=== PATIENT | female | born 1975 | race Caucasian/White ===

== ENCOUNTER 2018-07-30 22:13 | Inpatient (IN) | payer MEDICAID ==
[2018-07-30] MEDS: LACTATED RINGER'S 1,000 ML IV (23:35)
[2018-07-30] MEDS: ACETAMINOPHEN 1000MG/100ML IV 100 ML IVPB (23:48)
[2018-07-30 23:51] LABS: ADD MAN DIFF? NO
[2018-07-30 23:57] LABS: BASOPHILS % 0.2 % (0.0-2.0); EOSINOPHILS # 0.1 10^3/ul (0.0-0.5); EOSINOPHILS % 0.7 % (0.0-7.0); HEMATOCRIT 33.2 % (37.0-47.0); HEMOGLOBIN 11.4 g/dl (12.0-16.0); LYMPHOCYTES # 1.8 10^3/ul (0.8-2.9); LYMPHOCYTES % 14.7 % (15.0-51.0); MEAN CORPUSCULAR HEMOGLOBIN 30.5 pg (29.0-33.0); MEAN CORPUSCULAR HGB CONC 34.3 g/dl (32.0-37.0); MEAN CORPUSCULAR VOLUME 88.8 fl (82.0-101.0); MEAN PLATELET VOLUME 11.1 fl (7.4-10.4); MONOCYTE # 0.8 10^3/ul (0.3-0.9); MONOCYTES % 6.7 % (0.0-11.0); NEUTROPHIL # 9.3 10^3/ul (1.6-7.5); NEUTROPHILS % 77.1 % (39.0-77.0); PLATELET COUNT 217 10^3/UL (140-415); RED BLOOD COUNT 3.74 10^6/ul (4.20-5.40); RED CELL DISTRIBUTION WIDTH 13.4 % (11.5-14.5)
[2018-07-30 23:57] LABS: WHITE BLOOD COUNT 12.1 10^3/ul (4.8-10.8)
[2018-07-31 00:12] LABS: ALANINE AMINOTRANSFERASE 7 IU/L (13-69); ALBUMIN 2.8 g/dl (3.3-4.9); ALBUMIN/GLOBULIN RATIO 0.82; ALKALINE PHOSPHATASE 107 IU/L (42-121); ANION GAP 8 (5-13); ASPARTATE AMINO TRANSFERASE 15 IU/L (15-46); BILIRUBIN,INDIRECT 0.2 mg/dl (0-1.1); BILIRUBIN,TOTAL 0.2 mg/dl (0.2-1.3); BLOOD UREA NITROGEN 11 mg/dl (7-20); CALCIUM 9.3 mg/dl (8.4-10.2); CARBON DIOXIDE 21 mmol/L (21-31); CHLORIDE 109 mmol/L (97-110); CREATININE 0.55 mg/dl (0.44-1.00); Estimated GFR > 60 mL/min (>60); GLUCOSE 137 mg/dl (70-220); POTASSIUM 3.8 mmol/L (3.5-5.1); SODIUM 138 mmol/L (135-144); TOTAL PROTEIN 6.2 g/dl (6.1-8.1); URIC ACID 5.2 mg/dl (3.1-7.9)
[2018-07-31 00:15] LABS: ADD UMIC YES; UR ASCORBIC ACID NEGATIVE (NEGATIVE); UR BACTERIA FEW /HPF (NONE SEEN); UR BILIRUBIN (Dip) NEGATIVE (NEGATIVE); UR BLOOD (Dip) 1+ mg/dL (NEGATIVE); UR CLARITY CLEAR (CLEAR); UR COLOR STRAW (YELLOW); UR GLUCOSE (Dip) NEGATIVE (NEGATIVE); UR KETONES (Dip) NEGATIVE (NEGATIVE); UR LEUKOCYTE ESTERASE (Dip) NEGATIVE Leu/ul (NEGATIVE); UR NITRITE (Dip) NEGATIVE (NEGATIVE); UR RBC 0 /HPF (0-5); UR TOTAL PROTEIN (Dip) NEGATIVE (NEGATIVE); UR UROBILINOGEN (Dip) NEGATIVE (NEGATIVE); UR WBC 1 /HPF (0-5)
[2018-07-31 00:16] LABS: INR 0.93; PARTIAL THROMBOPLASTIN TIME 24.9 Sec (23.0-35.0); PROTIME 12.6 Sec (11.9-14.9)
[2018-07-31] MEDS ORDERED: BETAMET NA PHOS/AC(6 MG/ML) 5ML INJ IM (01:00)
[2018-07-31] MEDS: LACTATED RINGER'S 1,000 ML IV ×4 (02:20→23:55)
[2018-07-31] MEDS: BETAMET NA PHOS/AC(6 MG/ML) 5ML INJ IM (02:56)
[2018-07-31] MEDS: ACETAMINOPHEN 325 MG TAB PO ×4 (05:16→22:21)
[2018-07-31] MEDS: metFORMIN 500 MG TAB PO ×2 (08:23→17:59)
[2018-07-31] MEDS: PRENATAL VITAMIN PO (08:23)
[2018-07-31] MEDS: FERROUS SULFATE (EC) 325 MG TAB PO (08:23)
[2018-07-31] MEDS: ACCU-CHEK XX ×3 (10:55→20:41)
[2018-08-01 00:04] LABS: COLLECTION PERIOD 24 hrs
[2018-08-01 01:50] LABS: COLLECTION PERIOD 24 hrs; CREATININE CLEARANCE 147.7 mls/min (84.0-162.0); CREATININE,URINE RANDOM 27.86 mg/dl (20-320); SCRET 0.55 mg/dl (0.44-1.00); VOLUME 4200 ml/24hrs
[2018-08-01 01:54] LABS: VOLUME 4200 mls
[2018-08-01] MEDS: BETAMET NA PHOS/AC(6 MG/ML) 5ML INJ IM (03:02)
[2018-08-01] MEDS: PRENATAL VITAMIN PO (08:19)
[2018-08-01] MEDS: FERROUS SULFATE (EC) 325 MG TAB PO (08:19)
[2018-08-01] MEDS: metFORMIN 500 MG TAB PO (08:19)
[2018-08-01] MEDS: LACTATED RINGER'S 1,000 ML IV ×3 (08:20→23:40)
[2018-08-01] MEDS: ACETAMINOPHEN 325 MG TAB PO (08:32)
[2018-08-01] MEDS: ACCU-CHEK XX (10:40)
[2018-08-01] MEDS ORDERED: LACTATED RINGER'S 1,000 ML IV (14:35)
[2018-08-01] MEDS ORDERED: MINERAL OIL LIGHT 10 ML VIAL TOP (15:00)
[2018-08-01] MEDS ORDERED: OXYTOCIN 30 UNITS/LR 500 ML IV ×5 (15:00→22:00)
[2018-08-01] MEDS ORDERED: LIDOCAINE 0.5% (SDV) 50 ML INJ INFIL (15:00)
[2018-08-01] MEDS ORDERED: MISOPROSTOL 200 MCG TAB PR ×2 (15:00→22:00)
[2018-08-01] MEDS ORDERED: CARBOPROST 250 MCG INJ IM ×2 (15:00→22:00)
[2018-08-01] MEDS ORDERED: METHYLERGONOVINE 0.2 MG INJ IM ×2 (15:00→22:00)
[2018-08-01] MEDS ORDERED: DINOPROSTONE 10 MG VAG SUPP VAG (15:00)
[2018-08-01] MEDS ORDERED: BUTORPHANOL 2 MG INJ IV (15:00)
[2018-08-01] MEDS ORDERED: LACTATED RINGER'S 1,000 ML IV* (15:00)
[2018-08-01 15:31] LABS: ADD MAN DIFF? NO
[2018-08-01] MEDS: DINOPROSTONE 10 MG VAG SUPP VAG (15:32)
[2018-08-01 15:33] LABS: WHITE BLOOD COUNT 11.9 10^3/ul (4.8-10.8)
[2018-08-01 15:33] LABS: BASOPHILS % 0.2 % (0.0-2.0); HEMATOCRIT 33.9 % (37.0-47.0); HEMOGLOBIN 11.6 g/dl (12.0-16.0); LYMPHOCYTES # 1.2 10^3/ul (0.8-2.9); LYMPHOCYTES % 9.7 % (15.0-51.0); MEAN CORPUSCULAR HEMOGLOBIN 30.7 pg (29.0-33.0); MEAN CORPUSCULAR HGB CONC 34.2 g/dl (32.0-37.0); MEAN CORPUSCULAR VOLUME 89.7 fl (82.0-101.0); MEAN PLATELET VOLUME 11.3 fl (7.4-10.4); MONOCYTE # 0.6 10^3/ul (0.3-0.9); MONOCYTES % 4.8 % (0.0-11.0); NEUTROPHIL # 10.1 10^3/ul (1.6-7.5); NEUTROPHILS % 84.5 % (39.0-77.0); NUCLEATED RED BLOOD CELLS% 0.2 /100WBC (0.0-0.0); PLATELET COUNT 228 10^3/UL (140-415); RED BLOOD COUNT 3.78 10^6/ul (4.20-5.40); RED CELL DISTRIBUTION WIDTH 13.7 % (11.5-14.5)
[2018-08-01 15:53] LABS: INR 0.94; PROTIME 12.7 Sec (11.9-14.9)
[2018-08-01 15:54] LABS: PARTIAL THROMBOPLASTIN TIME 22.9 Sec (23.0-35.0)
[2018-08-01] MEDS: AMPICILLIN 2 GM/NS (PMX) 100 ML IV (16:28)
[2018-08-01 16:35] LABS: HEPATITIS B SURFACE ANTIGEN NEGATIVE (NEGATIVE)
[2018-08-01] MEDS ORDERED: CEFAZOLIN 2 GM/50 ML (PMX) 50 ML IVPB (17:30)
[2018-08-01] MEDS ORDERED: morphine SULFATE/PF (10 MG/10 ML) INJ (17:45)
[2018-08-01] MEDS ORDERED: METOCLOPRAMIDE 10 MG INJ (17:45)
[2018-08-01] MEDS ORDERED: ONDANSETRON 4 MG INJ (17:45)
[2018-08-01] MEDS ORDERED: OXYTOCIN 10 UNIT INJ ×2 (17:45→18:59)
[2018-08-01] MEDS ORDERED: EPHEDrine SULFATE 50 MG/5 ML SYG (17:45)
[2018-08-01] MEDS: AZITHROMYCIN 500MG/NS (PMX) 250 ML IVPB (19:53)
[2018-08-01] MEDS ORDERED: DIPHENHYDRAMINE 50 MG INJ IV (20:00)
[2018-08-01] MEDS: morphine SULFATE/PF (10 MG/10 ML) INJ SPINAL (20:00)
[2018-08-01] MEDS ORDERED: EPHEDrine SULFATE 50 MG/5 ML SYG IV (20:00)
[2018-08-01] MEDS ORDERED: ONDANSETRON 4 MG INJ IV (20:00)
[2018-08-01] MEDS ORDERED: NALOXONE (0.4 MG/ML) INJ IV (20:00)
[2018-08-01] MEDS ORDERED: morphine 2 MG INJ IV ×2 (20:00)
[2018-08-01] MEDS ORDERED: AMPICILLIN 1 GM/NS (PMX) 50 ML IV (20:30)
[2018-08-01] MEDS ORDERED: GLUCOSE GEL 15 GRAM TUBE BUCCAL (22:00)
[2018-08-01] MEDS ORDERED: NA PHOSPHATE/BIPHOS 133 ML ENEMA PR (22:00)
[2018-08-01] MEDS ORDERED: DEXTROSE 50% 50 ML SYRINGE IV ×2 (22:00)
[2018-08-01] MEDS ORDERED: GLUCAGON 1 MG INJ IM (22:00)
[2018-08-01] MEDS ORDERED: GLUCOSE GEL 15 GRAM TUBE PO ×2 (22:00)
[2018-08-01] MEDS: LANOLIN 7 GM TUBE TOP (23:02)
[2018-08-02] MEDS: CEFAZOLIN 2 GM/50 ML (PMX) 50 ML IVPB ×3 (02:11→16:58)
[2018-08-02] MEDS: CLINDAMYCIN 300 MG CAP PO ×4 (05:44→17:58)
[2018-08-02] MEDS: LACTATED RINGER'S 1,000 ML IV ×3 (07:47→21:31)
[2018-08-02] MEDS: ACCU-CHEK XX ×4 (07:48→21:11)
[2018-08-02 07:52] LABS: ADD MAN DIFF? NO
[2018-08-02 08:07] LABS: WHITE BLOOD COUNT 14.5 10^3/ul (4.8-10.8)
[2018-08-02 08:07] LABS: BASOPHILS % 0.1 % (0.0-2.0); EOSINOPHILS % 0.1 % (0.0-7.0); HEMATOCRIT 31.8 % (37.0-47.0); HEMOGLOBIN 10.8 g/dl (12.0-16.0); LYMPHOCYTES # 2.1 10^3/ul (0.8-2.9); LYMPHOCYTES % 14.2 % (15.0-51.0); MEAN CORPUSCULAR HEMOGLOBIN 30.9 pg (29.0-33.0); MEAN CORPUSCULAR VOLUME 90.9 fl (82.0-101.0); MEAN PLATELET VOLUME 11.2 fl (7.4-10.4); MONOCYTE # 1.1 10^3/ul (0.3-0.9); MONOCYTES % 7.4 % (0.0-11.0); NEUTROPHIL # 11.3 10^3/ul (1.6-7.5); NEUTROPHILS % 77.6 % (39.0-77.0); PLATELET COUNT 215 10^3/UL (140-415); RED CELL DISTRIBUTION WIDTH 13.9 % (11.5-14.5)
[2018-08-02] MEDS: SENNA/DOCUSATE NA (8.6MG/50MG) TAB PO ×2 (09:14→21:12)
[2018-08-02] MEDS: metFORMIN (XR) 500 MG TAB PO ×2 (09:29→21:12)
[2018-08-02] MEDS ORDERED: BISACODYL 10 MG SUPP PR (10:30)
[2018-08-02] MEDS: OXYCODONE/ACETAMINOPHEN (5/325) TAB PO (18:27)
[2018-08-02 21:11] LABS: RAPID PLASMA REAGIN NONREACTIVE (NR)
[2018-08-03] MEDS: CLINDAMYCIN 300 MG CAP PO ×5 (00:13→23:56)
[2018-08-03] MEDS: OXYCODONE/ACETAMINOPHEN (5/325) TAB PO ×3 (00:13→15:27)
[2018-08-03] MEDS: LACTATED RINGER'S 1,000 ML IV (05:31)
[2018-08-03] MEDS: BISACODYL 10 MG SUPP PR ×2 (08:54→10:20)
[2018-08-03] MEDS: ACCU-CHEK XX ×4 (08:55→21:31)
[2018-08-03] MEDS: metFORMIN (XR) 500 MG TAB PO ×2 (08:56→21:28)
[2018-08-03] MEDS: SENNA/DOCUSATE NA (8.6MG/50MG) TAB PO ×2 (08:56→21:27)
[2018-08-03 09:12] LABS: ADD MAN DIFF? NO
[2018-08-03 09:20] LABS: BASOPHILS % 0.3 % (0.0-2.0); EOSINOPHILS # 0.1 10^3/ul (0.0-0.5); EOSINOPHILS % 1.1 % (0.0-7.0); HEMATOCRIT 32.6 % (37.0-47.0); HEMOGLOBIN 10.8 g/dl (12.0-16.0); LYMPHOCYTES # 1.9 10^3/ul (0.8-2.9); MEAN CORPUSCULAR HEMOGLOBIN 30.3 pg (29.0-33.0); MEAN CORPUSCULAR HGB CONC 33.1 g/dl (32.0-37.0); MEAN CORPUSCULAR VOLUME 91.3 fl (82.0-101.0); MEAN PLATELET VOLUME 11.2 fl (7.4-10.4); MONOCYTE # 0.8 10^3/ul (0.3-0.9); MONOCYTES % 8.1 % (0.0-11.0); NEUTROPHIL # 7.2 10^3/ul (1.6-7.5); NEUTROPHILS % 71.1 % (39.0-77.0); PLATELET COUNT 207 10^3/UL (140-415); RED BLOOD COUNT 3.57 10^6/ul (4.20-5.40); RED CELL DISTRIBUTION WIDTH 14.1 % (11.5-14.5)
[2018-08-03 09:20] LABS: WHITE BLOOD COUNT 10.1 10^3/ul (4.8-10.8)
[2018-08-03] MEDS: HYDROCODONE/APAP (5/325) TAB PO ×2 (12:35→23:56)
[2018-08-04] MEDS: CLINDAMYCIN 300 MG CAP PO (05:50)
[2018-08-04] MEDS: HYDROCODONE/APAP (5/325) TAB PO (05:50)
[2018-08-04] MEDS: ACCU-CHEK XX (08:30)
[2018-08-04] MEDS: DIPHTH/TET/ACEL PERTUSS (ADULT) 0.5 ML VIAL IM* (09:06)
[2018-08-04] MEDS: MEASLES,MUMPS,RUBELLA VACCINE INJ SC* (09:06)
[2018-08-04] MEDS: SENNA/DOCUSATE NA (8.6MG/50MG) TAB PO (09:11)
[2018-08-04] MEDS: metFORMIN (XR) 500 MG TAB PO (09:12)
[2018-08-04] MEDS: OXYCODONE/ACETAMINOPHEN (5/325) TAB PO (09:27)
== END 2018-08-04 10:00 | disposition home or self-care (01) | DRG 785 ==
LOC: OBT 22:13 → L-D 08-01 13:42 → PP1 07-31 11:23 → L-D 08-01 17:37 → PP1 08-01 21:49
PROC: 10D00Z1 Extraction of Products of Conception, Low, Open Approach (ICD-10-PCS; principal; 2018-08-01)
PROC: 0UL70CZ Occlusion of Bilateral Fallopian Tubes with Extraluminal Device, Open Approach (ICD-10-PCS; 2018-08-01)
DX: O24.429 Gestational diabetes mellitus in childbirth, unspecified control (principal); Z37.0 Single live birth; O13.4 Gestational [pregnancy-induced] hypertension without significant proteinuria, complicating childbirth; Z30.2 Encounter for sterilization; Z3A.36 36 weeks gestation of pregnancy
CPT/HCPCS: 36415; 76815; 76818; 80053; 81001; 82575; 82947; 82962; 84156; 84560; 85025; 85384; 85610; 85730; 86592; 86900; 86901; 87086; 87340; 88302; 90715; 96360; 96375; 99464